=== PATIENT | female | born 1940 | race Caucasian/White ===

== ENCOUNTER 2020-08-26 09:32 | Emergency (ER) | payer MEDICARE, BC, SELFPAY ==
[2020-08-26] VITALS (14 sets, daily range): BP systolic 117–170; BP diastolic 57–65; PULSE 46–57; RESP 15–23; TEMP 37.1; O2SAT 95–98
--- NOTE | 2020-08-26 09:56 | ED.GENADULT ---
HPI - General Adult General Chief complaint: Weakness Stated complaint: Weakness Time Seen by Provider: 08/26/20 09:40 Source: patient, family (Daughter) and EMS Mode of arrival: EMS Limitations: altered mental status History of Present Illness HPI narrative: Patient is an 79-year-old female. She does have a history of Alzheimer's disease. She is at her baseline mental status per her daughter who is at bedside. EMS was called this morning for weakness. They were called by the patient's daughter who lives with her. There has been some medication changes recently over the past month. Her primary doctor has been weaning her off of quite a bit of medication however this has been over the past several weeks. The patient seems of been tolerating this well. Yesterday her metoprolol was decreased. This was the only medication change within the past couple days pain patient's daughter states that the patient woke this morning and seemed to be at her normal state of confusion. Daughter states that she normally is somewhat more confused in the morning and does need help with ?getting going ?patient did take a shower this morning on her own however there were 2 episodes where the daughter states that patient was very tired and weak and wanted to go back to sleep. Patient is unable to provide any HPI. Related Data Home Medications Medication Instructions Recorded Confirmed losartan 50 mg DAILY 08/26/20 08/26/20 metformin 500 mg PO DAILY 08/26/20 08/26/20 metoprolol succinate 25 mg PO 08/26/20 quetiapine 25 mg PO DAILY 08/26/20 08/26/20 Allergies Allergy/AdvReac Type Severity Reaction Status Date / Time codeine Allergy Unknown Verified 08/26/20 10:22 Tetracyclines Allergy Unknown Verified 08/26/20 12:13 Review of Systems Review of Systems Narrative: Only positive finding on the exam is the patient is complaining of right shoulder pain ROS Unobtainable: Unobtainable due to mental condition Patient History Medical History Dementia High cholesterol Hypertension Social History caregiver/support person: Yes Smoking Status: Never smoker Exam Initial Vital Signs Initial Vital Signs: Vital Signs Temperature 98.8 F 08/26/20 09:40 Pulse Rate 57 L 08/26/20 09:40 Respiratory Rate 18 08/26/20 09:40 Blood Pressure 170/65 H 08/26/20 09:40 Pulse Oximetry 98 08/26/20 09:40 Const General: comfortable Limitations: altered mental status HENMT Head: normal to inspection and normocephalic Resp Effort & Inspection: normal respiratory effort Auscultation: clear to auscultation bilaterally Cardio Rate: regular rate Rhythm: regular rhythm GI Inspection: non-distended Palpation: soft Skin Lesions: no lesions Rashes: no rashes Neuro General: patient alert, patient awake and moves all extremities Extrem Other: Does seem to have some discomfort palpation to the right shoulder the rest of her orthopedic exam is unremarkable Psych Appearance: well kempt Scores GCS Caitlin coma scale eye opening: Spontaneous [place]lin coma scale verbal response: Confused [place] coma scale motor response: Obey commands Caitlin coma scale total score: 14 Course Orders Ordered: ED Orders 08/26/20 09:32 Troponin & CK Cardiac Panel Stat 08/26/20 09:36 EKG-12 Lead Stat 08/26/20 09:50 Complete Blood Count AUTO DIFF Stat Comprehensive Metabolic Panel Stat Lactate (Lactic Acid) Stat Lipase Stat Procalcitonin Stat Thyroid Stimulating Hormone Stat 08/26/20 09:57 XR shoulder RT min 2V Stat 08/26/20 11:52 Urine Culture Stat Urine Microscopic Stat Vital Signs Vital signs: Vital Signs - 8 hr 08/26/20 09:40 08/26/20 09:53 08/26/20 09:54 Temperature 98.8 F Pulse Rate 57 L 56 L 55 L Respiratory Rate 18 20 20 Blood Pressure 170/65 H 144/64 H Pulse Oximetry 98 97 96 08/26/20 10:04 08/26/20 10:05 08/26/20 10:30 Temperature Pulse Rate 50 L 49 L 49 L Respiratory Rate 15 18 Blood Pressure 132/60 Pulse Oximetry 95 97 96 08/26/20 10:31 08/26/20 11:00 08/26/20 11:30 Temperature Pulse Rate 48 L 51 L 50 L Respiratory Rate 20 18 23 Blood Pressure 138/65 133/61 Pulse Oximetry 95 96 97 08/26/20 11:31 08/26/20 11:58 08/26/20 12:00 Temperature Pulse Rate 50 L 47 L 46 L Respiratory Rate 20 20 20 Blood Pressure 117/57 L 139/60 137/61 Pulse Oximetry 97 96 96 08/26/20 12:30 08/26/20 12:31 Temperature Pulse Rate 49 L 52 L Respiratory Rate 18 20 Blood Pressure 125/57 L Pulse Oximetry 97 95 Medical Decision Making Lab Data Lab results reviewed: Yes I reviewed the patient's lab results. Result diagrams: 08/26/20 09:50 08/26/20 09:50 Labs: Lab Results 08/26/20 08/26/20 08/26/20 Range/Units 09:32 09:50 09:50 WBC 6.2 (4.5-11.0) X10^3/uL RBC 4.05 (4.0-5.2) X10^6/uL Hgb 12.7 (12.0-16.0) g/dL Hct 37.9 (36-46) % MCV 93.7 (80-100) fL MCH 31.3 (26-34) PG MCHC 33.5 (30-36) % RDW 13.4 (11.6-14.8) % Plt Count 212 (150-400) X10^3/uL Neut % (Auto) 48.2 L (50-75) % Lymph % (Auto) 34.6 (25-40) % [place] % (Auto) 12.9 (3-14) % Eos % (Auto) 3.0 (2-4) % Baso % (Auto) 1.3 (0-2) % Neut # (Auto) 3000 (1639-9252) /uL Lymph # (Auto) 2100 (9187-9137) /uL [place] # (Auto) 800 (0-900) /uL Eos # (Auto) 200 (0-450) /uL Baso # (Auto) 100 (0-100) /uL Sodium 139 (137-145) mmol/L Potassium 4.4 (3.4-5.1) mmol/L Chloride 106 (98-107) mmol/L Carbon Dioxide 25 (22-32) mmol/L BUN 14 (7-17) mg/dL Creatinine 0.59 (0.52-1.04) mg/dL Estimated GFR > 60.0 (>60) mL/min BUN/Creatinine Ratio 23.7 H (6-22) Glucose 120 H (80-110) mg/dL Lactate (0.7-2.1) mmol/L Calcium 9.7 (8.4-10.2) mg/dL Total Bilirubin 0.7 (0.2-1.3) mg/dL AST 39 H (14-36) IU/L ALT 25 (<35) IU/L Alkaline Phosphatase 61 (38-126) U/L Total Creatine Kinase 148 H (30-135) U/L CK-MB (CK-2) 1.33 (<2.37) ng/mL CK-MB (CK-2) Rel Index 0.9 L (1.5-5.0) % Troponin I < 0.012 (0.01-0.034) ng/mL Total Protein 7.6 (6.3-8.2) g/dL Albumin 4.5 (3.5-5.0) g/dL Globulin 3.1 (1.7-4.1) g/dL Albumin/Globulin Ratio 1.5 (1.0-2.8) Lipase 123 (23-300) U/L Procalcitonin (<0.5) ng/mL TSH (0.47-4.68) uIU/mL Urine RBC (0-5/HPF) Urine WBC (0-5/HPF) Ur Transition Epith Cell (0-5/HPF) Urine Bacteria (None) Ur Culture Indicated? 08/26/20 08/26/20 08/26/20 Range/Units 09:50 09:50 09:50 WBC (4.5-11.0) X10^3/uL RBC (4.0-5.2) X10^6/uL Hgb (12.0-16.0) g/dL Hct (36-46) % MCV (80-100) fL MCH (26-34) PG MCHC (30-36) % RDW (11.6-14.8) % Plt Count (150-400) X10^3/uL Neut % (Auto) (50-75) % Lymph % (Auto) (25-40) % [place] % (Auto) (3-14) % Eos % (Auto) (2-4) % Baso % (Auto) (0-2) % Neut # (Auto) (9261-7938) /uL Lymph # (Auto) (2527-1598) /uL [place] # (Auto) (0-900) /uL Eos # (Auto) (0-450) /uL Baso # (Auto) (0-100) /uL Sodium (137-145) mmol/L Potassium (3.4-5.1) mmol/L Chloride (98-107) mmol/L Carbon Dioxide (22-32) mmol/L BUN (7-17) mg/dL Creatinine (0.52-1.04) mg/dL Estimated GFR (>60) mL/min BUN/Creatinine Ratio (6-22) Glucose (80-110) mg/dL Lactate 1.5 (0.7-2.1) mmol/L Calcium (8.4-10.2) mg/dL Total Bilirubin (0.2-1.3) mg/dL AST (14-36) IU/L ALT (<35) IU/L Alkaline Phosphatase (38-126) U/L Total Creatine Kinase (30-135) U/L CK-MB (CK-2) (<2.37) ng/mL CK-MB (CK-2) Rel Index (1.5-5.0) % Troponin I (0.01-0.034) ng/mL Total Protein (6.3-8.2) g/dL Albumin (3.5-5.0) g/dL Globulin (1.7-4.1) g/dL Albumin/Globulin Ratio (1.0-2.8) Lipase (23-300) U/L Procalcitonin 0.04 (<0.5) ng/mL TSH 0.747 (0.47-4.68) uIU/mL Urine RBC (0-5/HPF) Urine WBC (0-5/HPF) Ur Transition Epith Cell (0-5/HPF) Urine Bacteria (None) Ur Culture Indicated? 08/26/20 Range/Units 11:52 WBC (4.5-11.0) X10^3/uL RBC (4.0-5.2) X10^6/uL Hgb (12.0-16.0) g/dL Hct (36-46) % MCV (80-100) fL MCH (26-34) PG MCHC (30-36) % RDW (11.6-14.8) % Plt Count (150-400) X10^3/uL Neut % (Auto) (50-75) % Lymph % (Auto) (25-40) % [place] % (Auto) (3-14) % Eos % (Auto) (2-4) % Baso % (Auto) (0-2) % Neut # (Auto) (9235-6036) /uL Lymph # (Auto) (9088-8094) /uL [place] # (Auto) (0-900) /uL Eos # (Auto) (0-450) /uL Baso # (Auto) (0-100) /uL Sodium (137-145) mmol/L Potassium (3.4-5.1) mmol/L Chloride (98-107) mmol/L Carbon Dioxide (22-32) mmol/L BUN (7-17) mg/dL Creatinine (0.52-1.04) mg/dL Estimated GFR (>60) mL/min BUN/Creatinine Ratio (6-22) Glucose (80-110) mg/dL Lactate (0.7-2.1) mmol/L Calcium (8.4-10.2) mg/dL Total Bilirubin (0.2-1.3) mg/dL AST (14-36) IU/L ALT (<35) IU/L Alkaline Phosphatase (38-126) U/L Total Creatine Kinase (30-135) U/L CK-MB (CK-2) (<2.37) ng/mL CK-MB (CK-2) Rel Index (1.5-5.0) % Troponin I (0.01-0.034) ng/mL Total Protein (6.3-8.2) g/dL Albumin (3.5-5.0) g/dL Globulin (1.7-4.1) g/dL Albumin/Globulin Ratio (1.0-2.8) Lipase (23-300) U/L Procalcitonin (<0.5) ng/mL TSH (0.47-4.68) uIU/mL Urine RBC 1-5/hpf (0-5/HPF) Urine WBC 1-5/hpf (0-5/HPF) Ur Transition Epith Cell 0-1/hpf (0-5/HPF) Urine Bacteria Occasional (0-1) (None) Ur Culture Indicated? Specimen cultured Urine Dip Bedside Urine Glucose Negative Bedside Urine Bilirubin - Negative Bedside Urine Ketone - Negative Urine Specific [place] 1.015 Bedside Urine Occult Blood + Bedside Urine pH 6.5 Bedside Urine Protein - Negative Bedside Urine Urobilinogen - Negative Bedside Urine Nitrite - Negative Bedside Urine Leukocytes +++ 500 Esterase Point of care testing: Urine Dip Bedside Urine Glucose Negative Bedside Urine Bilirubin - Negative Bedside Urine Ketone - Negative Urine Specific [place] 1.015 Bedside Urine Occult Blood + Bedside Urine pH 6.5 Bedside Urine Protein - Negative Bedside Urine Urobilinogen - Negative Bedside Urine Nitrite - Negative Bedside Urine Leukocytes +++ 500 Esterase Imaging Data Extremity x-ray #1: Radiologist's Impression: [address] [id number] ReportSigned Patient: Verona MartinezMR#: [id number]: [id number]:[id number]/Sex: 79 / FDate of Service: 08/26/20Loc: EDAccession Number: [id number] Procedure: XR shoulder RT min 2V Ordering Provider: Jeremy Blum D.O. PROCEDURE: XR SHOULDER RT MIN 2V INDICATIONS: pain possible fall TECHNIQUE: 3 views of the shoulder were acquired. COMPARISON: None. FINDINGS: Bones: No fractures or dislocations. No suspicious bony lesions. Visualized ribs appear intact. Soft tissues: No suspicious soft tissue calcifications. 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 No recent trauma found. Dictated by: Hussain Mclean M.D. on 08/26/2020 at 10:40 Approved by: Hussain Mclean M.D. on 08/26/2020 at 10:41 ECG Data Attestation: I personally reviewed and interpreted this ECG as follows: Prior ECG tracings: not available for review Interpretation: Sinus bradycardia Ventricular rate of 56 Normal axis Normal QRS Normal QTC Nonspecific ST T wave changes MDM Narrative Medical decision making narrative: Patient's labs look well. No sign of any infection. Low suspicion for stroke. Low suspicion for ACS. Patient has been walking back and forth to the bathroom without problems. No indication for antibiotics. No indication for further radiologic studies for now. Discussed the case with the patient's daughter who is at bedside. Given her heart rate and blood pressure today will have her stop her metoprolol altogether. Patient and daughter were given return precautions and follow-up instructions. They expressed understanding and agreement. Discharge Plan Departure Patient Disposition: Home Clinical Impression: Bradycardia Instructions: DI for Bradycardia Activity Restrictions/Additional Instructions: I recommend that she stops her metoprolol altogether. Her heart rate and blood pressure today indicate that she should not be on this medication. I recommend you continue the rest of her medications as directed. Contact her primary provider for follow-up. Return to the emergency department for any new or worsening symptoms Prescriptions: No Action losartan 50 mg tablet 50 mg DAILY RF: 0 metformin 500 mg tablet extended release 24 hr 500 mg PO DAILY RF: 0 metoprolol succinate 25 mg tablet extended release 24 hr 25 mg PO RF: 0 quetiapine 25 mg tablet 25 mg PO DAILY RF: 0
[2020-08-26 10:10] LABS: Add Manual Diff / Slide Review NO; Basophils Absolute Auto 100 /uL (0-100); Basophils Percent Auto 1.3 % (0-2); Eosinophils Absolute Auto 200 /uL (0-450); Hematocrit 37.9 % (36-46); Hemoglobin 12.7 g/dL (12.0-16.0); Lymphocytes Absolute Auto 2100 /uL (1100-4500); Lymphocytes Percent Auto 34.6 % (25-40); Mean Corpuscular HGB Conc 33.5 % (30-36); Mean Corpuscular Hemoglobin 31.3 PG (26-34); Mean Corpuscular Volume 93.7 fL (80-100); Monocytes Absolute Auto 800 /uL (0-900); Monocytes Percent Auto 12.9 % (3-14); Neutrophils Absolute Auto 3000 /uL (1500-7000); Neutrophils Percent Auto 48.2 % (50-75); Platelet Count 212 X10^3/uL (150-400); Red Blood Cell Count 4.05 X10^6/uL (4.0-5.2); Red Cell Distribution Width 13.4 % (11.6-14.8); White Blood Cell Count 6.2 X10^3/uL (4.5-11.0)
[2020-08-26 10:16] LABS: Lactate (Lactic Acid) 1.5 mmol/L (0.7-2.1)
[2020-08-26 10:17] LABS: Alanine Aminotransferase 25 IU/L (<35); Albumin 4.5 g/dL (3.5-5.0); Albumin Globulin Ratio 1.5 (1.0-2.8); BUN Creatinine Ratio 23.7 (6-22); Bilirubin Total 0.7 mg/dL (0.2-1.3); Blood Urea Nitrogen 14 mg/dL (7-17); Calcium 9.7 mg/dL (8.4-10.2); Carbon Dioxide 25 mmol/L (22-32); Chloride 106 mmol/L (98-107); Estimated Glomerular Filt Rate > 60.0 mL/min (>60); Globulin 3.1 g/dL (1.7-4.1); Glucose 120 mg/dL (80-110); Lipase 123 U/L (23-300); Sodium 139 mmol/L (137-145); Total Protein 7.6 g/dL (6.3-8.2)
[2020-08-26 10:18] LABS: Aspartate Aminotransferase 39 IU/L (14-36); HEMOLYSIS 68 (0-50); Potassium 4.4 mmol/L (3.4-5.1)
[2020-08-26 10:19] LABS: Alkaline Phosphatase 61 U/L (38-126)
[2020-08-26 10:33] LABS: Procalcitonin 0.04 ng/mL (<0.5)
[2020-08-26 10:48] LABS: Creatine Kinase 148 U/L (30-135)
[2020-08-26 11:01] LABS: Troponin I < 0.012 ng/mL (0.01-0.034)
[2020-08-26 11:01] LABS: Thyroid Stimulating Hormone 0.747 uIU/mL (0.47-4.68)
[2020-08-26 11:04] LABS: CKMB % Relative Index 0.9 % (1.5-5.0); Creatine Kinase MB 1.33 ng/mL (<2.37)
[2020-08-26 12:08] LABS: Bacteria Urine Occasional (0-1); Culture Indicated Urine Specimen Cultured; RBC Urine 1-5/HPF (0-5/HPF); Transitional Epi Cells Urine 0-1/HPF (0-5/HPF); WBC Urine 1-5/HPF (0-5/HPF)
== END 2020-08-26 13:14 | disposition home or self-care (01) ==
PROVIDERS: Emergency Provider Emergency Medicine
DX: R00.1 Bradycardia, unspecified (principal); R53.1 Weakness
CPT/HCPCS: 36415; 73030; 80053; 81003; 81015; 82550; 82553; 83605; 83690; 84145; 84443; 84484; 85025; 87077; 87086; 87186; 93005; 99284